=== PATIENT | female | born 1985 | race Two or more races ===

== ENCOUNTER 2018-03-20 19:17 | Emergency (ER) | payer OTHER ==
[~2018-03-20] VITALS: Ht 167.6 cm; Wt 86.2 kg
== END 2018-03-20 22:50 | disposition home or self-care (01) ==
LOC: ER 19:17
DX: S00.83XA Contusion of other part of head, initial encounter (principal); V43.92XA Unspecified car occupant injured in collision with other type car in traffic accident, initial encounter; Y93.89 Activity, other specified; Y92.488 Other paved roadways as the place of occurrence of the external cause; Y99.8 Other external cause status